=== PATIENT | female | born 1945 | race Caucasian/White ===

== ENCOUNTER → 2018-03-16 | Day surgery (SDC) | payer OTHER, MEDICARE ==
[~2018-03-16] MED LIST: ATROPINE SULFATE 1 MG/10 ML SYR IVP ONE; NS 500 ML IV ONE
--- NOTE | 2018-03-17 15:26 | CPEKG ---
Test Reason : OPEN Blood Pressure : / mmHG Vent. Rate : 077 BPM Atrial Rate : 076 BPM P-R Int : 137 ms QRS Dur : 091 ms QT Int : 412 ms P-R-T Axes : 078 078 036 degrees QTc Int : 467 ms Sinus rhythm Probable left atrial enlargement ST elevation, consider inferior injury Confirmed by Zachariah Goyal ([id number] on 03/17/2018 3:25:32 PM Referred By: Confirmed By:Zachariah Goyal
== END | disposition home or self-care (01) ==
LOC: FCATH 11:46
PROVIDERS: ATTEND Internal Medicine Cardiovascular Disease
DX: I48.91 Unspecified atrial fibrillation (principal); Z53.09 Procedure and treatment not carried out because of other contraindication